=== PATIENT | female | born 1945 | race Caucasian/White ===

== ENCOUNTER 2020-05-27 12:17 | Inpatient (IN) ==
[2020-05-27] MEDS ORDERED: Naloxone 0.4 MG/ML INJ IVP PRN (17:19)
[2020-05-27] MEDS ORDERED: Ondansetron 4 MG/2 ML VIAL IVP PRN (17:19)
[2020-05-27] MEDS ORDERED: Acetaminophen 325 MG TABLET PO PRN (17:19)
[2020-05-27] MEDS ORDERED: *HR* LORazepam 1 MG TABLET PO PRN (17:26)
[2020-05-27] MEDS ORDERED: Preparation H Ointment 57 GM TUBE RC PRN (20:37)
[2020-05-27] MEDS: Gabapentin 300 MG CAPSULE PO SCH (20:51)
[2020-05-27] MEDS: *HR* HYDROcodone/Acet 5/325 mg TABLET PO PRN (21:18)
[2020-05-28] MEDS: *HR* Enoxaparin 40 MG/0.4 ML SYRINGE SQ SCH (05:03)
[2020-05-28 07:44] LABS: Hematocrit 32.6 % (35.3-44.9); Hemoglobin 11.1 g/dL (11.5-15.4); Mean Corpuscular Hemoglobin 30.1 pg (28.0-33.3); Mean Corpuscular Volume 88.3 fL (83.0-100.0); Mean Platelet Volume 10.5 fL (9.4-12.4); Platelet Count 242 K/mcL (140-400); Red Blood Count 3.69 M/mcL (3.82-4.97); Red Cell Distribution Width 13.7 % (11.5-14.5)
[2020-05-28 08:06] LABS: BUN/Creatinine Ratio 14 (6-26); Blood Urea Nitrogen 10 mg/dL (8-23); Calcium 7.7 mg/dL (8.6-10.3); Carbon Dioxide 23 mEq/L (23-29); Chloride 106 mEq/L (98-107); Glucose 76 mg/dL (70-105); Osmolality,Calculated 282 (280-300); Sodium 137 mEq/L (136-145); eGFR For African Americans > 60 (> 60); eGFR For Non-African Americans > 60 (> 60)
[2020-05-28] MEDS: *HR* HYDROcodone/Acet 5/325 mg TABLET PO PRN ×2 (08:41→18:49)
[2020-05-28] MEDS: Gabapentin 300 MG CAPSULE PO SCH ×2 (08:41→21:58)
[2020-05-28] MEDS: Cefepime HCl 1,000 MG in 0.9 % Sodium Chloride Mini Bag 100 ML IVPB SCH ×2 (17:55→23:28)
[2020-05-29] MEDS: *HR* Enoxaparin 40 MG/0.4 ML SYRINGE SQ SCH (04:49)
[2020-05-29] MEDS: Cefepime HCl 1,000 MG in 0.9 % Sodium Chloride Mini Bag 100 ML IVPB SCH (07:33)
[2020-05-29] MEDS: Gabapentin 300 MG CAPSULE PO SCH (07:34)
[2020-05-29 07:39] VITALS: BP 119/76
[2020-05-29] MEDS: *HR* HYDROcodone/Acet 5/325 mg TABLET PO PRN ×2 (07:39→14:18)
== END 2020-05-29 16:29 | disposition home health service (06) | DRG 177 ==
LOC: INPPIK 18:20
PROVIDERS: ADMIT Family Medicine; ATTEND Family Medicine